=== PATIENT | male | born 1960 | race Caucasian/White ===

== ENCOUNTER 2022-01-01 16:15 | Inpatient (IN) | payer OTHER ==
[~2022-01-01] VITALS: Ht 193 cm; Wt 140.8 kg
[~2022-01-01 16:15] MED LIST: ALLO100 PO; ASPI81CH PO; LOSARTAN POTAS100 MG PO
[2022-01-01 17:05] LABS: BASOPHILS ABSOLUTE AUTO 0.03 K/mm3 (0.00-0.23); BASOPHILS PERCENT AUTO 0 % (0-2); EOSINOPHILS ABSOLUTE AUTO 0.09 K/mm3 (0.00-0.68); EOSINOPHILS PERCENT AUTO 1 % (0-6); Hematocrit 40.9 % (37.0-53.0); Hemoglobin 14.1 g/dL (13.5-17.5); IMMATURE GRAN ABSOLUTE AUTO 0.01 K/mm3 (0.00-0.10); IMMATURE GRAN PERCENT AUTO 0 % (0-1); LYMPHOCYTES ABSOLUTE AUTO 1.76 K/mm3 (0.84-5.20); LYMPHOCYTES PERCENT AUTO 24 % (21-46); MONOCYTES ABSOLUTE AUTO 0.65 K/mm3 (0.16-1.47); MONOCYTES PERCENT AUTO 9 % (4-13); Mean Corpuscular HGB 32.3 pg (26.0-34.0); Mean Corpuscular HGB Conc 34.5 g/dL (31.5-36.5); Mean Corpuscular Volume 94 fL (80-100); NEUTROPHILS ABSOLUTE AUTO 4.76 K/mm3 (1.96-9.15); NEUTROPHILS PERCENT AUTO 65 % (41-73); Platelet Count 192 K/mm3 (150-400); RDW Coefficient Variation 12.1 % (11.7-14.2); RDW Standard Deviation 41.8 fL (35.1-46.3); Red Blood Cell Count 4.36 M/mm3 (4.30-5.90)
[2022-01-01 17:21] LABS: Albumin, Blood 3.8 g/dL (3.4-5.0); Albumin/Globulin Ratio 1.1 (0.8-1.8); Bilirubin, Total 0.5 mg/dL (0.1-1.0); Bun/Creatinine Ratio 21.9 (12.0-20.0); Creatinine, Blood 0.87 mg/dL (0.60-1.20); Globulin, Blood 3.4 g/dL (2.2-4.0); Potassium, Blood 3.8 mmol/L (3.5-5.5); Total Protein, Blood 7.2 g/dL (6.4-8.2)
[2022-01-01 19:15] LABS: Anti-Xa UFH, PHA Monitoring <0.10 IU/mL; International Normalized Ratio 1.02; Prothrombin Time Results 10.7 Sec (9.7-11.5)
[2022-01-01] MEDS ORDERED: AMLO5 PO (20:58)
[2022-01-01] MEDS ORDERED: GLUCHON PO (21:03)
[2022-01-01] MEDS ORDERED: MULVITA PO (21:03)
--- NOTE | 2022-01-02 06:10 | NUR ---
SHIFT SUMMARY Assumed care of pt at 2054 as an ER admit. A/Ox4, independent in room. Reports no CP/pressure. Maintains over 95% on RA, uses CPAP hs, where he does desat to high 80's despite being on the mask. LS clear on top and inspiratory wheezes at bases. Nonproductive cough. SR on tele 70's. Strong +2 pulses t/o. Heparin infusing per emar. Patient states he was never dx as diabetic but that "I'm prediabetic". VSS. NPO after midnight in the event patient gets procedure today. Will report to chuck CALLAHAN.
--- NOTE | 2022-01-02 12:38 | NUR ---
UPDATE [facility] TAK[facility]. WILL AWAIT RETURN
[2022-01-02 13:42] LABS: SARS-Cov-2 (COVID-19) PCR, MMC NEGATIVE (NEGATIVE)
--- NOTE | 2022-01-02 14:45 | NUR ---
UPDATE PT RETURNED FROM PHARMACY AFFAIRS ASSISTANT. VS STABLE. HR NSR. PT DENIES ANY PAIN. RIGHT RADIAL SITE WNL AND TR BAND WITH 10ML OF AIR. PT EDUCATED ON RIGHT ARM RESTRICTIONS. PT TO BE TRANSFERRED TO DIFFERENT HOSPITAL FOR HIGH RISK PCI. [facility] TEACHER CALLING TO FIND ACCEPTING HOSPITAL. AGGRASTAT INFUSING UPON ARRIVAL. PER REPORT DRIP STARTED AT 1319. WILL CONTINUE TO MONITOR CLOSELY
[2022-01-02 15:44] LABS: BASOPHILS ABSOLUTE AUTO 0.03 K/mm3 (0.00-0.23); BASOPHILS PERCENT AUTO 1 % (0-2); EOSINOPHILS ABSOLUTE AUTO 0.08 K/mm3 (0.00-0.68); EOSINOPHILS PERCENT AUTO 1 % (0-6); Hematocrit 41.2 % (37.0-53.0); Hemoglobin 14.1 g/dL (13.5-17.5); IMMATURE GRAN ABSOLUTE AUTO 0.01 K/mm3 (0.00-0.10); IMMATURE GRAN PERCENT AUTO 0 % (0-1); LYMPHOCYTES ABSOLUTE AUTO 1.78 K/mm3 (0.84-5.20); LYMPHOCYTES PERCENT AUTO 28 % (21-46); MONOCYTES ABSOLUTE AUTO 0.57 K/mm3 (0.16-1.47); MONOCYTES PERCENT AUTO 9 % (4-13); Mean Corpuscular HGB 32.2 pg (26.0-34.0); Mean Corpuscular HGB Conc 34.2 g/dL (31.5-36.5); Mean Corpuscular Volume 94 fL (80-100); Mean Platelet Volume 8.8 fL (9.1-12.4); NEUTROPHILS ABSOLUTE AUTO 3.99 K/mm3 (1.96-9.15); NEUTROPHILS PERCENT AUTO 62 % (41-73); Platelet Count 201 K/mm3 (150-400); RDW Coefficient Variation 12.1 % (11.7-14.2); RDW Standard Deviation 42.4 fL (35.1-46.3); Red Blood Cell Count 4.38 M/mm3 (4.30-5.90); White Blood Cell Count 6.46 K/mm3 (4.00-11.30)
[2022-01-02 15:53] LABS: Bun/Creatinine Ratio 15.4 (12.0-20.0); Calcium, Blood 9.2 mg/dL (8.5-10.1); Creatinine, Blood 0.78 mg/dL (0.60-1.20); Potassium, Blood 3.6 mmol/L (3.5-5.5)
--- NOTE | 2022-01-03 05:28 | NUR ---
SHIFT SUMMARY Patient slept most of the night with CPAP in place. Medicated x2 for headache with good relief. VSS. SR 70-80's. Aggrastat infusing per emar. R radial site C/D/I without hematoma. No acute changes. Will report to dayshift SINDY.
--- NOTE | 2022-01-03 16:29 | NUR ---
SHIFT SUMMARY PT HAS BEEN RESTLESS IN ROOM. PT HAS BEEN COOPERATIVE WITH CARES, ASKS QUESTIONS R/T PLAN OF CARE, AND IS AN ACTIVE PARTICIPANT IN CARE PLANNING DECISIONS. PT HAS AMBULATED IN HALLS MULTIPLE TIMES THROUGHOUT THE DAY DESPITE BEING CAUTIONED BY THE PROVIDER TO "TAKE IT EASY." PT HAS STATED THAT THEY HOPE TO TRANSFER OUT OF THE FACILITY SOON POSSIBLE TO "GET THIS OVER WITH." PT C/O PAIN AND DISCOMFORT AT RIGHT ANTECUBITAL IV SITE MULTIPLE TIMES, THIS RN REMOVED THE SITE FOR PT COMFORT. ALL VITAL SIGNS HAVE BEEN STABLE AND WNL. PT HAS DENIED ANY EPISODE OF CHEST PAIN/PRESSURE.
--- NOTE | 2022-01-03 19:28 | NUR ---
CARE ASSUMPTION: RECEIVED REPORT FROM EARNEST CASEY RN. PATIENT STANDING IN DOORWAY OF ROOM AND REQUESTED TYLENOL FOR HEADACHE. PATIENT RETURNED TO BED WHICH THIS RN NOTED WAS NOT IN LOWEST POSITION. PATIENT STATED HE'S BEEN ADJUSTING THE BED TO HIS LIKING AND SINCE HIS LEGS ARE LONG HE LIKES IT "A LITTLE HIGHER." EDUCATED ON FALL PREVENTION. CALL LIGHT IN REACH AND BED LOW AT TIME THIS RN LEFT ROOM.
--- NOTE | 2022-01-04 05:06 | NUR ---
SHIFT SUMMARY: VSS T/O NIGHT, DENIES SOB OR CHEST PAIN, ANGIO SITE WNL. NO ADVERSE EVENTS THIS SHIFT. PATIENT SLEPT WITH CPAP IN PLACE MOST OF THE NIGHT. INDEPENDENT IN ROOM, DENIES NEEDS, AND NPO SINCE MIDNIGHT. STILL AWAITING TRANSFER TO [facility] AT THIS TIME. BED LOW WITH CALL LIGHT IN PLACE. WILL CONTINUE TO MONITOR AND REPORT TO ONCOMING RN.
--- NOTE | 2022-01-04 07:45 | NUR ---
COBRA TRANSFER UPDATE: Spoke with [place] volunteer services coordinator this a.m. at approx 0730. Plan for potential xfer tomorrow, 01/05, with pt arriving to [place] [facility] at approx 1600 for procedure 01/06 a.m. flow coordinator will call PCU unit with update and transfer details tomorrow morning.
[2022-01-04] MEDS ORDERED: BENEFIBER PO (12:10)
--- NOTE | 2022-01-04 17:07 | NUR ---
SHIFT SUMMARY PT REMAINS ALERT AND ORIENTED. VS STABLE. HR REMAINS ALERT AND ORIENTED. O2 SATS REMAIN ABOVE 90% ON RA. PT DENIES ANY CP ALL DAY. PT TO GO TO [facility] TOMORROW FOR HIGH RISK PCI. WILL CONTINUE TO MONITOR AND REPORT TO ONCOMING RN
--- NOTE | 2022-01-04 19:33 | NUR ---
CARE ASSUMPTION: RECEIVED REPORT FROM DIMAS SKAGGS RN. PATIENT STANDING IN ROOM IN GOOD SPIRITS. PATIENT STATES FEELING BETTER TODAY, DENIES PAIN OR SOB, AND IS LOOKING FORWARD TO TRANSFER TOMORROW. HE IS GLAD HE WAS ABLE TO EAT TODAY AND AGAIN TOMORROW HE WAS "BEHIND ON MEALS AFTER BEING IN THE ED AFTER THE STRESS TEST." VS WNL ON RA. CALL LIGHT IN REACH.
--- NOTE | 2022-01-05 05:19 | NUR ---
SHIFT SUMMARY: PATIENT DENIES CHEST PAIN OR SOB, ANGIO SITE FULLY RECOVERED. VSS T/O SHIFT. PATIENT HAS A BRUISE ON LEFT ARM WHERE HE SAYS THE FIRST POWERGLIDE ATTEMPT WAS INITIATED THAT IS BOTHERING HIM THIS MORNING - HE WAS GIVEN AN ICE PACK. MEDICATED PER EMAR. PATIENT INDEPENDENT IN ROOM. SLEPT WITH CPAP IN PLACE. NO ADVERSE EVENTS THIS SHIFT. PLAN IS TO TRANSFER TO [facility] LATER TODAY. WILL CONTINUE TO MONITOR AND REPORT TO ONCOMING RN.
--- NOTE | 2022-01-05 12:46 | NUR ---
PT PICKED UP BY TRANSPORT VIA GURNEY FOR COBRA TRANSFER TO [facility] IN [place], PT HAS BEEN CHEST PAIN FREE SINCE THE BEGINNING OF THE SHIFT, VITALS HAS BEEN STABLE. POWERGLIDE LEFT IN PLACE FLUSHING PATENT GOOD BLOOD RETURN ON TUTU. ALL BELONGINGS SENT WITH THE PT COBRA TRANSFER PACKET SENT WITH THE EMS PERSON WELL. REPORT GIVEN TO IRU NURSE.
== END 2022-01-05 12:45 | disposition short-term general hospital (02) | DRG 251 ==
LOC: ER 16:15 → PCU 20:35
PROVIDERS: Emergency Medicine; Internal Medicine Interventional Cardiology; Physician Assistant; ADMIT Internal Medicine
PROC: 02713ZZ Dilation of Coronary Artery, Two Arteries, Percutaneous Approach (ICD-10-PCS; 2022-01-02)
PROC: 4A023N7 Measurement of Cardiac Sampling and Pressure, Left Heart, Percutaneous Approach (ICD-10-PCS; 2022-01-02)
PROC: B2111ZZ Fluoroscopy of Multiple Coronary Arteries using Low Osmolar Contrast (ICD-10-PCS; 2022-01-02)
PROC: B2151ZZ Fluoroscopy of Left Heart using Low Osmolar Contrast (ICD-10-PCS; 2022-01-02)
PROC: 5A09357 Assistance with Respiratory Ventilation, Less than 24 Consecutive Hours, Continuous Positive Airway Pressure (ICD-10-PCS; principal; 2022-01-04)
DX: I21.4 Non-ST elevation (NSTEMI) myocardial infarction (principal); I10 Essential (primary) hypertension; E11.9 Type 2 diabetes mellitus without complications; G47.33 Obstructive sleep apnea (adult) (pediatric); Z20.822 Contact with and (suspected) exposure to COVID-19; M10.9 Gout, unspecified; Z87.891 Personal history of nicotine dependence; Z79.82 Long term (current) use of aspirin; Z79.899 Other long term (current) drug therapy; I25.10 Atherosclerotic heart disease of native coronary artery without angina pectoris
CPT/HCPCS: 36415; 71045; 76937; 80048; 80053; 82947; 84484; 85025; 85347; 85520; 85610; 92920; 92921; 93005; 93010; 93458; 94660; 94762; 96374; 96376; 99152; 99153; 99284-25; A9270; C1725; C1751; C1769; C1887; C1894; G0378; J1644; J1650; J2250; J3010; J3246; J7030; J7040; Q9967; U0004